=== PATIENT | male | born 1980 | race Caucasian/White ===

== ENCOUNTER → 2020-01-24 | Outpatient (CLI) | payer OTHER ==
[~2020-01-24] MED LIST: ASPIRIN325; PRILOSEC40 MG PO; ULTRAM 50MG TAB50 MG PO
== END ==
LOC: M.ULTRA 01-20 10:30
PROVIDERS: ATTEND Family Medicine
DX: R10.13 Epigastric pain (principal); R10.11 Right upper quadrant pain

== ENCOUNTER → 2020-12-10 | Outpatient (CLI) | payer OTHER | LOC: M.CT 14:00 | PROVIDERS: ATTEND Family Medicine | DX: E78.49 Other hyperlipidemia (principal) ==